=== PATIENT | male | born 1985 | race Two or more races ===

== ENCOUNTER 2023-12-20 14:22 | Emergency (ER) | payer OTHER ==
[2023-12-20 15:00] VITALS: BP 142/92; PULSE 90; RESP 16; TEMP 98.3; BMI 50.2
[2023-12-20] MEDS ORDERED: ACETAMINOPHEN 500 MG TABLET (FP) ONE (15:53)
[2023-12-20] MEDS: ACETAMINOPHEN 500 MG TABLET (FP) PO ONE (15:55)
== END 2023-12-20 16:46 | disposition home or self-care (01) ==
LOC: JER 14:22
DX: S06.0X0A Concussion without loss of consciousness, initial encounter (principal); G44.319 Acute post-traumatic headache, not intractable; W22.8XXA Striking against or struck by other objects, initial encounter
CPT/HCPCS: 70450-TC; 99283-25